=== PATIENT | female | born 1985 | race Caucasian/White ===

== ENCOUNTER 2018-01-22 09:20 | Emergency (ER) | payer OTHER ==
[~2018-01-22] VITALS: Ht 160 cm; Wt 88.7 kg
[2018-01-22 10:17] LABS: HEMATOCRIT 43.5 % (36.0-46.0); HEMOGLOBIN 15.6 G/DL (11.9-15.5); MCH 32.7 PG (29.0-34.0); MCHC 35.9 G/DL (30.0-36.0); MCV 91.2 FL (83-99); PLATELET COUNT 233 K/uL (156-360); RBC DIS.WIDTH-CV 12.2 % (11.8-14.6); RBC DIS.WIDTH-SD 40.8 % (39-53); RED BLOOD COUNT 4.77 M/uL (3.80-5.20)
[2018-01-22 10:20] LABS: APPEARANCE SL.HAZY ((CLEAR)); BILIRUBIN NEGATIVE; BLOOD NEGATIVE; COLOR YELLOW ((YELLOW)); GLUCOSE (STRIP) NEGATIVE; KETONES NEGATIVE; LEUKOCYTES TRACE; NITRITE NEGATIVE; PROTEIN (STRIP) NEGATIVE; SPECIFIC GRAVITY 1.023 (1.000-1.030)
[2018-01-22 10:32] LABS: BACTERIA 1+ /HPF; EPITHELIAL CELLS 1+ /HPF; MUCUS 1+ /LPF; UCUL ADDED? NO; WHITE BLOOD CELLS 0-5 /HPF (0-5)
[2018-01-22 10:57] LABS: ALBUMIN 3.8 G/DL (3.2-4.8); CHLORIDE 107 MEQ/L (99-109); POTASSIUM 3.7 MEQ/L (3.7-5.4); SODIUM 140 MEQ/L (136-147); TOTAL BILIRUBIN 0.3 MG/DL (0.0-1.0)
[2018-01-22 11:03] LABS: ALKALINE PHOSPHATASE 77 IU/L (3-129); ALT (GPT) 11 IU/L (3-49); AST (GOT) 11 IU/L (2-34); CREATININE 0.6 MG/DL (0.6-1.3); GFR ESTIMATE (CALCULATED) > 59 mL/min/; GLUCOSE 103 mg/dL (70-99); TOTAL PROTEIN 6.2 G/DL (6.4-8.3); UREA NITROGEN (BUN) 4 mg/dL (9-23)
[2018-01-22 11:07] LABS: QUANTITATIVE HCG < 4.0 MIU/ML
[2018-01-22 15:01] LABS: LIPASE 45 U/L (1.0-51.0)
[2018-01-22 15:45] VITALS: BP 110/81
== END 2018-01-22 15:46 | disposition home or self-care (01) ==
LOC: EME 09:20
DX: K80.20 Calculus of gallbladder without cholecystitis without obstruction (principal); F17.200 Nicotine dependence, unspecified, uncomplicated
CPT/HCPCS: 76705; 80053; 81003; 83690; 84702; 85027; 85379; J1885; J2405; J7030